=== PATIENT | female | born 1945 | race Caucasian/White ===

== ENCOUNTER 2020-04-02 20:09 | Emergency (ER) | payer MEDICAID, SELFPAY ==
[~2020-04-02] VITALS: Ht 157.5 cm; Wt 61.2 kg
[2020-04-02 20:22] VITALS: Ht 157.5 cm; Wt 61.2 kg
[2020-04-02 22:21] VITALS: BP 111/65
== END 2020-04-02 22:20 | disposition home or self-care (01) ==
LOC: ED 20:09
DX: U07.1 COVID-19 (principal); J02.9 Acute pharyngitis, unspecified; B34.9 Viral infection, unspecified; I10 Essential (primary) hypertension; E03.9 Hypothyroidism, unspecified
CPT/HCPCS: J1100; J8540; Q0092; U0003-CS